=== PATIENT | female | born 1950 | race Two or more races ===

== ENCOUNTER 2021-05-28 05:20 | Inpatient (IN) | payer OTHER ==
[~2021-05-28 05:20] MED LIST: AZOPT10 ML OP; REFRESH LIQUIGE15 ML OP; ZADITOR5 ML OP
[2021-05-29] MEDS ORDERED: VITAMIN D3250 MCG (08:21)
[2021-05-29] MEDS ORDERED: ESTRADIOL10 MCG (08:22)
== END 2021-05-29 12:57 | disposition home or self-care (01) | DRG 747 ==
LOC: CIR.AMB 05:20 → OB/GYN 11:14 → O/R 11:14 → OB/GYN 15:51
PROVIDERS: ADMIT Specialist; ATTEND Specialist
PROC: 0JQC0ZZ Repair Pelvic Region Subcutaneous Tissue and Fascia, Open Approach (ICD-10-PCS; 2021-05-28)
PROC: 0UTMXZZ Resection of Vulva, External Approach (ICD-10-PCS; principal; 2021-05-28 07:00)
DX: C51.9 Malignant neoplasm of vulva, unspecified (principal); N90.3 Dysplasia of vulva, unspecified; N81.6 Rectocele; I10 Essential (primary) hypertension